=== PATIENT | female | born 1945 | race Caucasian/White ===

== ENCOUNTER 2018-12-10 08:14 | Outpatient (CLI) | payer MEDICARE, OTHER ==
[2018-12-10 08:50] LABS: BASOPHILS % (AUTO) 0.5 %; EOSINOPHILS # (AUTO) 0.2 10^3/uL (0.0-0.7); EOSINOPHILS % (AUTO) 3.8 %; HGB - HEMOGLOBIN 12.4 g/dL (12.0-16.0); LYMPHOCYTES # (AUTO) 1.3 10^3/uL (1.5-3.5); LYMPHOCYTES % (AUTO) 33.1 %; MEAN CORPUSCULAR HEMOGLOBIN 29.2 pg (27.0-31.0); MEAN CORPUSCULAR HGB CONC 32.5 g/dL (32.0-36.0); MEAN CORPUSCULAR VOLUME 90.1 fL (81.0-99.0); MONOCYTES # (AUTO) 0.4 10^3/uL (0.0-1.0); MONOCYTES % (AUTO) 9.5 %; NEUTROPHILS # (AUTO) 2.1 10^3/uL (1.5-6.6); NEUTROPHILS % (AUTO) 52.8 %; PLT - PLATELET COUNT 143 10^3/uL (130-450); RED BLOOD COUNT 4.24 10^6/uL (4.20-5.40); RED CELL DISTRIBUTION WIDTH 13.9 % (12.0-15.0)
[2018-12-10 09:04] LABS: ALBUMIN 4.2 g/dL (3.2-5.5); ALBUMIN/GLOBULIN RATIO 1.5 (1.0-2.2); ALKALINE PHOSPHATASE 52 IU/L (42-121); ALT ALANINE AMINOTRANSFERASE 25 IU/L (10-60); AST ASPARTATE AMINOTRANSFERASE 32 IU/L (10-42); BILIRUBIN,TOTAL 0.7 mg/dL (0.2-1.0); BUN - BLOOD UREA NITROGEN 16 mg/dL (6-20); CALCIUM 9.5 mg/dL (8.5-10.3); CARBON DIOXIDE - CO2 26 mmol/L (21-32); CHLORIDE 106 mmol/L (101-111); CHOL/HDL RATIO 3.3 (<4.4); CHOLESTEROL 196 mg/dL; CREATININE 0.8 mg/dL (0.4-1.0); GFR - MDRD 71 (>89); GLUCOSE 92 mg/dL (70-100); HDL CHOLESTEROL 60 mg/dL; LDL CHOLESTEROL,CALCULATED 121 mg/dL; SODIUM 142 mmol/L (135-145); VLDL CHOLESTEROL 15 mg/dL
== END 2018-12-10 08:15 | disposition home or self-care (01) ==
LOC: LAB 08:14
PROVIDERS: ATTEND Internal Medicine
DX: E55.9 Vitamin D deficiency, unspecified (principal); E78.00 Pure hypercholesterolemia, unspecified
CPT/HCPCS: 36415; 80053; 80061; 82306; 83721; 84443; 85025

== ENCOUNTER 2020-03-11 09:33 | Outpatient (CLI) | payer MEDICARE, OTHER ==
[2020-03-11 09:53] LABS: BASOPHILS % (AUTO) 0.7 %; EOSINOPHILS # (AUTO) 0.2 10^3/uL (0.0-0.7); LYMPHOCYTES # (AUTO) 1.1 10^3/uL (1.5-3.5); LYMPHOCYTES % (AUTO) 26.3 %; MEAN CORPUSCULAR HEMOGLOBIN 29.5 pg (27.0-31.0); MEAN CORPUSCULAR HGB CONC 33.2 g/dL (32.0-36.0); MEAN CORPUSCULAR VOLUME 88.9 fL (81.0-99.0); MEAN PLATELET VOLUME 10.1 fL (7.9-10.8); MONOCYTES # (AUTO) 0.3 10^3/uL (0.0-1.0); MONOCYTES % (AUTO) 7.4 %; NEUTROPHILS # (AUTO) 2.6 10^3/uL (1.5-6.6); NEUTROPHILS % (AUTO) 61.4 %; PLT - PLATELET COUNT 149 10^3/uL (130-450); RED BLOOD COUNT 4.41 10^6/uL (4.20-5.40); RED CELL DISTRIBUTION WIDTH 13.8 % (12.0-15.0); WHITE BLOOD COUNT 4.3 x10^3/uL (4.8-10.8)
[2020-03-11 10:09] LABS: ALBUMIN 4.5 g/dL (3.2-5.5); ALBUMIN/GLOBULIN RATIO 1.6 (1.0-2.2); ALKALINE PHOSPHATASE 54 IU/L (42-121); ALT ALANINE AMINOTRANSFERASE 19 IU/L (10-60); AST ASPARTATE AMINOTRANSFERASE 27 IU/L (10-42); BILIRUBIN,TOTAL 0.6 mg/dL (0.2-1.0); BUN - BLOOD UREA NITROGEN 16 mg/dL (6-20); CALCIUM 9.6 mg/dL (8.5-10.3); CARBON DIOXIDE - CO2 24 mmol/L (21-32); CHLORIDE 105 mmol/L (101-111); CHOL/HDL RATIO 3.4 (<4.4); CHOLESTEROL 202 mg/dL; CREATININE 0.9 mg/dL (0.4-1.0); GLUCOSE 100 mg/dL (70-100); HDL CHOLESTEROL 59 mg/dL; LDL CHOLESTEROL,CALCULATED 127 mg/dL; LDL/HDL RATIO 2.2 (<4.4); SODIUM 140 mmol/L (135-145); TOTAL PROTEIN 7.4 g/dL (6.7-8.2); VLDL CHOLESTEROL 16 mg/dL
== END 2020-03-11 09:34 | disposition home or self-care (01) ==
LOC: LAB 09:33
PROVIDERS: ATTEND Registered Nurse
DX: Z00.00 Encounter for general adult medical examination without abnormal findings (principal); I10 Essential (primary) hypertension; E78.00 Pure hypercholesterolemia, unspecified; J45.909 Unspecified asthma, uncomplicated; D69.6 Thrombocytopenia, unspecified; Z12.31 Encounter for screening mammogram for malignant neoplasm of breast
CPT/HCPCS: 36415; 80053; 80061; 83721; 84443; 85025

== ENCOUNTER 2020-04-05 13:02 | Outpatient (CLI) | payer MEDICARE, OTHER ==
--- NOTE | 2020-04-06 16:31 | Mammography Report ---
BILATERAL DIGITAL SCREENING MAMMOGRAM 3D/2D: 04/05/2020 CLINICAL: Routine screening. Comparison is made to exams dated: 10/31/2017 mammogram, 09/10/2016 mammogram, and 07/27/2015 mammogram - [facility]. There are scattered fibroglandular elements in both breasts. No significant masses, calcifications, or other findings are seen in either breast. There has been no significant interval change. IMPRESSION: NEGATIVE There is no mammographic evidence of malignancy. A 1 year screening mammogram is recommended. This exam was interpreted at Station ID: [id number]. NOTE: For mammograms, a report in lay terms will be sent to the patient. Approximately 15% of breast malignancies will not be visualized mammographically. In the management of a palpable breast mass, a negative mammogram must not discourage biopsy of a clinically suspicious lesion. Electronically Signed By: Sonam hutchins/[email or web address]:04/05/2020 16:48:57 ACR BI-RADS Category 1: Negative 3341F PARENCHYMAL PATTERN: (A) - The breast(s) demonstrate(s) scattered fibroglandular densities. BI-RADS CATEGORY: (1) - 1 RECOMMENDATION: (ANNUAL) - Recommend routine annual screening mammography. [id number] 1 year screening LATERALITY: (B)
== END 2020-04-05 13:03 | disposition home or self-care (01) ==
LOC: DI 13:02
DX: Z12.31 Encounter for screening mammogram for malignant neoplasm of breast (principal)
CPT/HCPCS: 77063; 77067

== ENCOUNTER 2020-04-26 06:50 | Outpatient (CLI) | payer MEDICARE, OTHER | END 2020-04-26 06:51 | disposition critical access hospital (66) | LOC: EMS 06:50 | PROVIDERS: ATTEND Surgery | DX: R55 Syncope and collapse (principal) | CPT/HCPCS: A0425; A0427 ==

== ENCOUNTER 2020-04-26 07:11 | Observation (INO) | payer MEDICARE, OTHER ==
[2020-04-26] MEDS ORDERED: SODIUM CHLORIDE 0.9% 1,000 ML IV STA (07:36)
[2020-04-26 08:07] LABS: BASOPHILS % (AUTO) 0.3 %; EOSINOPHILS # (AUTO) 0.2 10^3/uL (0.0-0.7); EOSINOPHILS % (AUTO) 2.9 %; HGB - HEMOGLOBIN 12.4 g/dL (12.0-16.0); LYMPHOCYTES % (AUTO) 13.2 %; MEAN CORPUSCULAR HEMOGLOBIN 29.1 pg (27.0-31.0); MEAN CORPUSCULAR HGB CONC 31.8 g/dL (32.0-36.0); MEAN CORPUSCULAR VOLUME 91.5 fL (81.0-99.0); MEAN PLATELET VOLUME 10.2 fL (7.9-10.8); MONOCYTES # (AUTO) 0.5 10^3/uL (0.0-1.0); MONOCYTES % (AUTO) 6.2 %; NEUTROPHILS # (AUTO) 5.9 10^3/uL (1.5-6.6); PLT - PLATELET COUNT 143 10^3/uL (130-450); RED BLOOD COUNT 4.26 10^6/uL (4.20-5.40); RED CELL DISTRIBUTION WIDTH 13.7 % (12.0-15.0); WHITE BLOOD COUNT 7.6 x10^3/uL (4.8-10.8)
[2020-04-26] MEDS ORDERED: BUFFERED LIDOCAINE 10 ML SYRINGE SUBQ STA (08:11)
[2020-04-26 08:21] LABS: ALBUMIN 4.1 g/dL (3.2-5.5); ALBUMIN/GLOBULIN RATIO 1.4 (1.0-2.2); BILIRUBIN,TOTAL 0.4 mg/dL (0.2-1.0); CALCIUM 9.3 mg/dL (8.5-10.3); CREATININE 0.8 mg/dL (0.4-1.0)
--- NOTE | 2020-04-26 08:22 | ED Physician Documentation ---
History of Present Illness - Stated complaint Stated Complaint: SYNCOPE - Chief complaint Chief Complaint: Neuro - History obtained from History obtained from: Patient - Additonal information Additional information: 75-year-old woman with past medical history of mild intermittent asthma, non- smoker, presents with syncopal episode this morning. Patient woke up with chest congestion and nasal congestion, used her inhaler, and on the second puff became lightheaded then passed out. She woke with her face on the floor, with bilateral epistaxis, and laceration to the lower lip. She swallowed blood on route via EMS and felt nauseous spitting up blood twice.Last tetanus 4 years ago. Patient denies fever chills chest pain palpitations shortness of breath coughMyalgias. She does endorse mild bifrontal nonradiating aching headache. Review of Systems Ten Systems: 10 systems reviewed and negative Constitutional: denies: Fever, Chills Cardiac: reports: Chest pain / pressure. denies: Palpitations Respiratory: reports: Wheezing. denies: Dyspnea, Cough PD PAST MEDICAL HISTORY - Allergies Allergies/Adverse Reactions: Allergies Allergy/AdvReac Type Severity Reaction Status Date / Time No Known Drug Allergies Allergy Verified 04/26/20 07:26 PD ED PE NORMAL - Vitals Vital signs reviewed: Yes - General General: Alert and oriented X 3 - HEENT HEENT: Atraumatic, PERRL, EOMI, Dentition benign, Other (abrasions to R zygomatic arch without underlying tenderness. BL dried blood to nares with no NSH. 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, No motor deficit, No sensory deficit, Normal speech - Psych Psych: Normal mood, Normal affect Results - Vitals Vitals: Vital Signs - 24 hr 04/26/20 04/26/20 07:11 07:30 Temperature 36.2 C L Heart Rate 61 57 L Respiratory 18 12 Rate Blood Pressure 176/99 H 151/91 H O2 Saturation 98 97 Oxygen O2 Source Room air - EKG (time done) 0735 Rate: Rate (enter#) (57) Rhythm: Sinus bradycardia [place]: Normal Intervals: Normal NH QRS: Normal Ischemia: Normal ST segments - Labs Labs: Laboratory Tests 04/26/20 04/26/20 04/26/20 07:50 07:59 07:59 WBC 7.6 RBC 4.26 Hgb 12.4 Hct 39.0 MCV 91.5 MCH 29.1 MCHC 31.8 L RDW 13.7 Plt Count 143 MPV 10.2 Neut # (Auto) 5.9 Lymph # (Auto) 1.0 L [place] # (Auto) 0.5 Eos # (Auto) 0.2 Baso # (Auto) 0.0 Absolute Nucleated RBC 0.00 Nucleated RBC % 0.0 Sodium 142 Potassium 3.8 Chloride 106 Carbon Dioxide 23 Anion Gap 13.0 BUN 16 Creatinine 0.8 Estimated GFR (MDRD) 70 L Glucose 104 H Calcium 9.3 Total Bilirubin 0.4 AST 35 ALT 22 Alkaline Phosphatase 58 Troponin I High Sens Total Protein 7.0 Albumin 4.1 Globulin 2.9 Albumin/Globulin Ratio 1.4 Lipase 45 Nasal Adenovirus (PCR) NOT DETECTED Nasal B. parapertussis DNA (PCR) NOT DETECTED Nasal Coronavir 229E PCR NOT DETECTED Nasal Coronavir HKU1 PCR NOT DETECTED Nasal Coronavir NL63 PCR NOT DETECTED Nasal Coronavir OC43 PCR NOT DETECTED Nasal Enterovir/Rhinovir PCR NOT DETECTED Nasal Influenza B PCR NOT DETECTED Nasal Influenza A PCR NOT DETECTED Nasal Parainfluen 1 PCR NOT DETECTED Nasal Parainfluen 2 PCR NOT DETECTED Nasal Parainfluen 3 PCR NOT DETECTED Nasal Parainfluen 4 PCR NOT DETECTED Nasal RSV (PCR) NOT DETECTED Nasal B.pertussis DNA PCR NOT DETECTED Nasal C.pneumoniae (PCR) NOT DETECTED Bryan Human Metapneumo PCR NOT DETECTED Nasal M.pneumoniae (PCR) NOT DETECTED Nasal SARS-CoV-2 (PCR) NOT DETECTED 04/26/20 07:59 WBC RBC Hgb Hct MCV MCH MCHC RDW Plt Count MPV Neut # (Auto) Lymph # (Auto) [place] # (Auto) Eos # (Auto) Baso # (Auto) Absolute Nucleated RBC Nucleated RBC % Sodium Potassium Chloride Carbon Dioxide Anion Gap BUN Creatinine Estimated GFR (MDRD) Glucose Calcium Total Bilirubin AST ALT Alkaline Phosphatase Troponin I High Sens 3.1 Total Protein Albumin Globulin Albumin/Globulin Ratio Lipase Nasal Adenovirus (PCR) Nasal B. parapertussis DNA (PCR) Nasal Coronavir 229E PCR Nasal Coronavir HKU1 PCR Nasal Coronavir NL63 PCR Nasal Coronavir OC43 PCR Nasal Enterovir/Rhinovir PCR Nasal Influenza B PCR Nasal Influenza A PCR Nasal Parainfluen 1 PCR Nasal Parainfluen 2 PCR Nasal Parainfluen 3 PCR Nasal Parainfluen 4 PCR Nasal RSV (PCR) Nasal B.pertussis DNA PCR Nasal C.pneumoniae (PCR) Bryan Human Metapneumo PCR Nasal M.pneumoniae (PCR) Nasal SARS-CoV-2 (PCR) PD MEDICAL DECISION MAKING - ED course Complexity details: d/w patient ED course: 75-year-old woman presents status post syncopal episode with preceding symptoms of lightheadedness. Patient will undergo work-up in the ED and then is a good candidate for observation for echocardiogram. Will discuss with hospitalist. Departure - Departure Disposition: ED Place in Observation Clinical Impression: Syncope, Dizziness, Laceration of lip, Abrasions of multiple sites, Epistaxis Condition: Good
--- NOTE | 2020-04-26 08:27 | XRAY Report ---
PROCEDURE: Chest 1 View X-Ray INDICATIONS: Chest Pain TECHNIQUE: One view of the chest was acquired. COMPARISON: None. FINDINGS: Surgical changes and devices: None. Lungs and pleura: No pleural effusions or pneumothorax. Lungs are clear. Mediastinum: Mediastinal contours appear normal. Heart size is normal. Bones and chest wall: No suspicious bony lesions. Overlying soft tissues appear unremarkable. IMPRESSION: No acute cardiopulmonary abnormality. Reviewed by: Chad Qureshi MD on 04/26/2020 8:25 AM [facility] Approved by: Chad Qureshi MD on 04/26/2020 8:25 AM [facility] Station ID: [id number]
[2020-04-26 08:54] LABS: C. PNEUMONIAE- RESP PCR PANEL NOT DETECTED
[2020-04-26] MEDS ORDERED: SODIUM CHLORIDE FLUSH 0.9% 10 ML SYRINGE IVP PRN (09:32)
[2020-04-26] MEDS ORDERED: ACETAMINOPHEN 325 MG TABLET PO PRN (09:32)
[2020-04-26] MEDS ORDERED: ONDANSETRON ODT 4 MG TABLET TL PRN (09:32)
--- NOTE | 2020-04-26 09:34 | HISTORY & PHYSICAL EXAMINATION ---
Chief Complaint - Chief Complaint Chief Complaint: Passed out History of Present Illness - Admitted From Admitted From:: Home - History Obtained From Records Reviewed: Yes History obtained from: Patient, ER Physician, EMR - History of Present Illness HPI Comment/Other: This is a pleasant 75-year-old female with a past medical history significant for exercise-induced asthma who presents today after having a syncopal episode at home this morning. She states she woke up this morning and felt a little bit of nasal congestion. She made some tea and took her albuterol this morning. She notes that with her second inhale, she began to feel dizzy and lightheaded. She tended to sit down when all of a sudden she passed out and hit her head on the ground as well as the right side of her chest. She states her significant other heard her fall and came down to see her and by then, she was awake. She recalls the events leading up to the fall. Denies any chest pain, palpitations prior to the event. She does complain of some right-sided chest pain after the fall. She also had some bleeding from the lower lip as well as nose pain. She had some nausea due to the blood she was swallowing. She reports no prior episodes of syncope. She is to hold her breath for a few seconds while she was using the albuterol. Currently denies any dizziness, lightheadedness. In the emergency room, she was found to be afebrile with a heart rate in the 50s to 60s. Blood pressure in the 140 systolic. She is nontachypneic and saturating well on room air. Her labs are unremarkable including troponin. Chest x-ray is also unremarkable. EKG showed a sinus rhythm. Given the above findings, medicine was consulted for admission. I did discuss goals of care and she would like to be a full code. History - Past Medical History Cardiovascular: reports: None Respiratory: reports: Asthma - Family & Social History Family History Comment/Other: She reports no family history of cardiac disease or cancer. Living arrangement: At home Living Situation: With spouse/s.o. 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 She is a non-smoker. She will have 1 alcoholic beverage a week. Meds/Allgy - Home Medications Home Medications: Ambulatory Orders Medication Instructions Recorded Confirmed Albuterol Sulfate [Proair 2 puffs INH Q6H PRN 04/26/20 04/26/20 Respiclick] Calcium Carbonate/Vitamin D3 1 each PO DAILY 04/26/20 04/26/20 [Calcium 600 mg-Vit D3 10Mcg Tb] Cholecalciferol (Vitamin D3) 2,000 unit PO DAILY 04/26/20 04/26/20 [Vitamin D3] - Allergies Allergies/Adverse Reactions: Allergies Allergy/AdvReac Type Severity Reaction Status Date / Time No Known Drug Allergies Allergy Verified 04/26/20 07:26 Review of Systems - Constitutional Constitutional: denies: Fatigue, Fever, Chills - Ears, Nose & Throat Ears, Nose & Throat: reports: Nosebleeds, Nasal congestion, Bleeding gums - Cardiovascular Cariovascular: reports: Syncope. denies: Palpitations, Chest pain, Lightheadedness, Exertional dyspnea, Decr. exercise tolerance - Respiratory Respiratory: denies: Cough, SOB at rest, SOB with exertion - Gastrointestinal Gastrointestinal: reports: Nausea. denies: Abdominal pain, Vomiting - Genitourinary Genitourinary: denies: Urgency - Neurological Neurological: denies: General weakness, Focal weakness, Dizziness, Numbness - All Other Systems All Other Systems: reports: Reviewed and negative Prior Level of Functionality: She is independent with her ADLs. Exam - Vital Signs Reviewed Vital Signs: Yes Vital Signs: Vital Signs x48h Temp Pulse Resp BP Pulse Ox 04/26/20 07:30 57 L 12 151/91 H 97 04/26/20 07:11 36.2 C L 61 18 176/99 H 98 - Physical Exam General Appearance: positive: No acute distress, Alert Eyes Bilateral: positive: Normal inspection, Conjunctivae nml ENT: positive: ENT inspection nml, Other (Her nose is edematous and tender to palpation. Dry blood noted. There is a bandage in place over the lower lip.) Neck: positive: Nml inspection Respiratory: positive: No respiratory distress. negative: Wheezes, Rales Cardiovascular: positive: Regular rate & rhythm, No murmur. negative: Tachycardia, Bradycardia, Systolic murmur Abdomen: positive: Non-tender, No distention. negative: Tenderness Skin: positive: Warm, Dry Extremities: positive: Full ROM, No pedal edema Neurologic/Psychiatric: positive: Oriented x3, Motor nml. negative: Disoriented to person, Disoriented to place, Disoriented to time Conclusion/Plan - Problem List (1) Syncope Conclusion/Plan: Suspect this may have been related to the use of her inhaler and possibly a vagal episode as she held her breath. Her EKG is unremarkable initial troponin is negative. Chest x-ray is also unremarkable. We will place her in observat ion. Check orthostatics. Monitor on telemetry. Obtain echocardiogram. Trend troponins. (2) Laceration of lip Conclusion/Plan: Secondary to the fall. She is on antianticoagulation or antiplatelets. This has been sutured in the emergency department. - Lab Results Lab results reviewed: Yes Fish Bones: 04/26/20 07:59 04/26/20 07:59 - Diagnostic Imaging Results Diagnostic Imaging Results: positive: Final report reviewed - EKG Results EKG Interpreted Independently: Yes EKG Findings: EKG shows normal sinus rhythm without any ischemic changes. Core Measures - Anticipated LOS I expect patient to be DC'd or transferred within 96 hours.: Yes - Issues Hospital Issues and Management Plan: 75-year-old female presents with syncope. We will place in observation for echocardiogram, telemetry, orthostatics. - DVT/VTE - Prophylaxis VTE/DVT Device ordered at admit?: Yes VTE/DVT Prophylaxis med ordered at admit?: No Not Ordered - Medical Reason: Not indicated
--- NOTE | 2020-04-26 15:11 | PHARMACY PROGRESS NOTE ---
- Best Possible Medication History Admit Date and Time: 04/26/20 0932 Medication History completed: Yes Patient Interview: Completed Secondary Source(s): Insurance records As the person ultimately responsible for medication therapy, providers are able to order a medication from an existing home medication list in [facility] via the "Reconcile Routine" prior to Confirmation of that medication by retail support associate. Such practice is discouraged except when the physician, in their clinical judgment, deems that a medical need exists for a medication without regard to previous use.
[2020-04-26] MEDS ORDERED: ALBUTEROL NEB 2.5 MG/3 ML INH PRN (15:56)
[2020-04-26] MEDS ORDERED: SODIUM CHLORIDE FLUSH 0.9% 10 ML SYRINGE IVP SCH (17:00)
[2020-04-27 07:05] LABS: BASOPHILS % (AUTO) 0.3 %; EOSINOPHILS # (AUTO) 0.2 10^3/uL (0.0-0.7); EOSINOPHILS % (AUTO) 2.6 %; HGB - HEMOGLOBIN 12.2 g/dL (12.0-16.0); LYMPHOCYTES # (AUTO) 1.4 10^3/uL (1.5-3.5); LYMPHOCYTES % (AUTO) 24.8 %; MEAN CORPUSCULAR HEMOGLOBIN 29.3 pg (27.0-31.0); MEAN CORPUSCULAR HGB CONC 32.4 g/dL (32.0-36.0); MEAN CORPUSCULAR VOLUME 90.4 fL (81.0-99.0); MONOCYTES # (AUTO) 0.6 10^3/uL (0.0-1.0); MONOCYTES % (AUTO) 9.6 %; NEUTROPHILS # (AUTO) 3.6 10^3/uL (1.5-6.6); NEUTROPHILS % (AUTO) 62.4 %; PLT - PLATELET COUNT 147 10^3/uL (130-450); RED BLOOD COUNT 4.16 10^6/uL (4.20-5.40); RED CELL DISTRIBUTION WIDTH 13.7 % (12.0-15.0); WHITE BLOOD COUNT 5.8 x10^3/uL (4.8-10.8)
[2020-04-27 07:24] LABS: CALCIUM 9.2 mg/dL (8.5-10.3); CREATININE 0.8 mg/dL (0.4-1.0); PHOSPHORUS 2.9 mg/dL (2.5-4.6)
--- NOTE | 2020-04-27 07:26 | Discharge Plan ---
Discharge Plan Problem Reviewed?: Yes Disposition: Home, Self Care Condition: Good Diet: Regular Activity Restrictions: Activity as Tolerated Instruction Topics: Syncope Health Concerns: You were seen in the hospital because you passed out at home. We did an ultrasound of your heart which did not show any structural abnormalities. We monitored your heart rhythm which has been normal throughout this hospitalization. I suspect you likely passed out because you held your breath for extended period of time when using your inhaler. X-rays of your ribs did not show a fracture. The x-ray of your nose also did not show a fracture. Plan of Treatment: Please follow-up with your primary care provider in 1 week. If you pass out again, you may need monitor at home to monitor your heart rhythm. You may take Tylenol as needed for pain control. Care Goals: To prevent you from passing out. Assessment: The patient expressed understanding of the treatment plan. Additional Instructions or Follow Up instructions: Please follow-up with your primary care provider in 1 week. No Smoking: If you smoke, Please STOP! Call for help.
--- NOTE | 2020-04-27 07:27 | DISCHARGE SUMMARY ---
"Discharge Summary Admit Date: 04/26/20 Discharge Date: 04/27/20 Discharging Provider: Baudilio Magdaleno Primary Care Provider: Carlos Moser Code Status: Attempt Resuscitation Condition at Discharge: Good Discharge Disposition: 01 Home, Self Care - DIAGNOSES Admission Diagnoses: Syncope Laceration of lip Discharge Diagnoses with Status of Each Condition: Syncope - stable. Laceration of lip - stable. - HPI History of Present Illness: This is a pleasant 75-year-old female with a past medical history significant for exercise-induced asthma who presents today after having a syncopal episode at home this morning. She states she woke up this morning and felt a little bit of nasal congestion. She made some tea and took her albuterol this morning. She notes that with her second inhale, she began to feel dizzy and lightheaded. She tended to sit down when all of a sudden she passed out and hit her head on the ground as well as the right side of her chest. She states her significant other heard her fall and came down to see her and by then, she was awake. She recalls the events leading up to the fall. Denies any chest pain, palpitations prior to the event. She does complain of some right-sided chest pain after the fall. She also had some bleeding from the lower lip as well as nose pain. She had some nausea due to the blood she was swallowing. She reports no prior episodes of syncope. She is to hold her breath for a few seconds while she was using the albuterol. Currently denies any dizziness, lightheadedness. In the emergency room, she was found to be afebrile with a heart rate in the 50s to 60s. Blood pressure in the 140 systolic. She is nontachypneic and saturati ng well on room air. Her labs are unremarkable including troponin. Chest x-ray is also unremarkable. EKG showed a sinus rhythm. Given the above findings, medicine was consulted for admission. I did discuss goals of care and she would like to be a full code. - CONSULTS | PROCEDURES Procedures: Echocardiogram revealed a preserved ejection fraction without any significant valvular disease or structural abnormalities. - HOSPITAL COURSE Hospital Course: She was admitted to the floor after a single episode at home. She had no evidence of arrhythmia while on telemetry. Her echocardiogram was unremarkable. Troponins were trended and these were unremarkable. The patient had no further evidence of syncope during his hospitalization. It was felt this may have been related to the use of her inhaler and possibly holding her breath for extended period of time versus a vagal episode. She did complain of some right-sided chest pain after the fall and a rib x-ray was obtained which was unremarkable. Nasal x-rays also obtained did not reveal a fracture. Was discharged home in a stable condition. She is asked to follow-up with her primary care provider in 1 week. It was recommended if she has a further episode of syncope, she will need an outpatient Holter monitor. - ALLERGIES Allergies/Adverse Reactions: Allergies Allergy/AdvReac Type Severity Reaction Status Date / Time No Known Drug Allergies Allergy Verified 04/26/20 07:26 - MEDICATIONS Home Medications: Ambulatory Orders Medication Instructions Recorded Confirmed Albuterol Sulfate [Proair 2 puffs INH Q6H PRN 04/26/20 04/26/20 Respiclick] Calcium Carbonate/Vitamin D3 1 each PO DAILY 04/26/20 04/26/20 [Calcium 600 mg-Vit D3 10Mcg Tb] Cholecalciferol (Vitamin D3) 2,000 unit PO DAILY 04/26/20 04/26/20 [Vitamin D3] - PHYSICAL EXAM AT DISCHARGE General Appearance: positive: No acute distress, Alert Eyes Bilateral: positive: Normal inspection, Conjunctivae nml ENT: positive: ENT inspection nml Neck: positive: Nml inspection Respiratory: positive: No respiratory distress. negative: Wheezes, Rales Cardiovascular: positive: Regular rate & rhythm, No murmur. negative: Tachycardia, Bradycardia, Systolic murmur Abdomen: positive: Non-tender, No distention. negative: Tenderness, Guarding, Rebound Skin: positive: Warm, Dry Extremities: positive: Full ROM, No pedal edema Neurologic/Psychiatric: positive: Oriented x3, Motor nml. negative: Disoriented to person, Disoriented to place, Disoriented to time Physical Exam Other/Comments: Vital Signs - 24 hr 04/26/20 04/26/20 04/26/20 13:17 14:20 14:22 Temperature Heart Rate 61 Heart Rate [ 57 L 55 L Brachial] Respiratory 18 18 20 Rate Blood Pressure 134/90 H Blood Pressure 145/76 H 154/76 H [Right Brachial artery] O2 Saturation 97 97 99 04/26/20 04/26/20 04/26/20 14:51 15:55 20:08 Temperature 37.1 C 37.0 C Heart Rate Heart Rate [ 63 59 L 64 Brachial] Respiratory 20 16 16 Rate Blood Pressure Blood Pressure 140/78 H 139/77 H 130/76 [Right Brachial artery] O2 Saturation 98 100 98 04/27/20 04/27/20 04/27/20 00:56 05:00 08:43 Temperature 37.0 C 36.9 C 36.8 C Heart Rate Heart Rate [ 60 58 L 66 Brachial] Respiratory 16 18 16 Rate Blood Pressure Blood Pressure 108/61 117/67 116/62 [Right Brachial artery] O2 Saturation 96 99 96 Oxygen O2 Source Room air - LABS Result Diagrams: 04/27/20 06:37 04/27/20 06:37 Other Lab Results: Laboratory Results - last 24 hr 04/26/20 04/26/20 04/26/20 13:41 16:49 21:01 WBC RBC Hgb Hct MCV MCH MCHC RDW Plt Count MPV Neut # (Auto) Lymph # (Auto) [place] # (Auto) Eos # (Auto) Baso # (Auto) Absolute Nucleated RBC Nucleated RBC % Sodium Potassium Chloride Carbon Dioxide Anion Gap BUN Creatinine Estimated GFR (MDRD) Glucose Calcium Phosphorus Magnesium Troponin I High Sens 5.0 4.7 4.2 04/27/20 04/27/20 06:37 06:37 WBC 5.8 RBC 4.16 L Hgb 12.2 Hct 37.6 MCV 90.4 MCH 29.3 MCHC 32.4 RDW 13.7 Plt Count 147 MPV 10.0 Neut # (Auto) 3.6 Lymph # (Auto) 1.4 L [place] # (Auto) 0.6 Eos # (Auto) 0.2 Baso # (Auto) 0.0 Absolute Nucleated RBC 0.00 Nucleated RBC % 0.0 Sodium 135 Potassium 4.0 Chloride 104 Carbon Dioxide 23 Anion Gap 8.0 BUN 15 Creatinine 0.8 Estimated GFR (MDRD) 70 L Glucose 98 Calcium 9.2 Phosphorus 2.9 Magnesium 2.0 Troponin I High Sens - DIAGNOSTIC IMAGING Diagnostic Imaging Results: Final report reviewed - FOLLOW UP Follow Up: She was asked to follow-up with her primary care provider in 1 week. - TIME SPENT Time Spent in Discharge (Minutes): 31"
[2020-04-27 08:45] VITALS: BP 116/62
--- NOTE | 2020-04-27 08:52 | XRAY Report ---
PROCEDURE: Ribs 2 View RT INDICATIONS: Right chest pain. Fall. TECHNIQUE: 2 views of the right ribs were acquired. COMPARISON: Chest x-ray 04/26/2020 FINDINGS: Surgical changes and devices: None. Bones and chest wall: No fractures or dislocations. No suspicious bony lesions. Overlying soft tis sues appear unremarkable. Lungs and pleura: The visualized lung appears clear. No pleural effusions or pneumothorax are visib le. IMPRESSION: No acute pulmonary process. No visualized acute fracture or dislocation. However, occult injury canno t be excluded. Recommend short interval imaging follow-up in 7-10 days as clinically indicated for ad ditional evaluation. Reviewed by: Edna Bobby MD on 04/27/2020 7:51 AM [facility] Approved by: Edna Bobby MD on 04/27/2020 7:51 AM [facility] Station ID: [id number]
--- NOTE | 2020-04-27 08:57 | XRAY Report ---
PROCEDURE: Nasal Bones INDICATIONS: Fall. Trauma. Edema. TECHNIQUE: 3 views of the nasal bones acquired. COMPARISON: None FINDINGS: Bones: No displaced nasal bone fracture. Nasal septum is midline. Normal nasociliary nerve grooves a re noted. Soft tissues: No suspicious soft tissue calcifications. IMPRESSION: No displaced nasal bone fracture. Reviewed by: Lore Ernandez MD, PhD on 04/27/2020 8:55 AM [facility] Approved by: Lore Ernandez MD, PhD on 04/27/2020 8:55 AM [facility] Station ID: [id number]
[2020-04-27] MEDS ORDERED: CALCIUM CARB (OYSTER SHELL) 500 MG TABLET PO SCH (09:00)
[2020-04-27] MEDS ORDERED: CHOLECALCIFEROL 25 MCG TABLET PO SCH (09:00)
== END 2020-04-27 12:11 | disposition home or self-care (01) ==
LOC: EDUNIT# → ED 07:11 → OBS 09:32
PROVIDERS: ADMIT Internal Medicine; ATTEND Internal Medicine
DX: R55 Syncope and collapse (principal); S01.511A Laceration without foreign body of lip, initial encounter; W18.30XA Fall on same level, unspecified, initial encounter; Y92.009 Unspecified place in unspecified non-institutional (private) residence as the place of occurrence of the external cause; R04.0 Epistaxis; R00.1 Bradycardia, unspecified; J45.990 Exercise induced bronchospasm; R07.89 Other chest pain; Z20.828 Contact with and (suspected) exposure to other viral communicable diseases
CPT/HCPCS: 36415; 70160; 71045; 71100; 80048; 80053; 83690; 83735; 84100; 84484; 85025; 87631; 93005; 93306; 99284; 99285; G0378; 0202U

== ENCOUNTER 2022-03-21 11:50 | Outpatient (CLI) | payer MEDICARE, OTHER ==
[2022-03-21 12:08] LABS: HCT - HEMATOCRIT 36.2 % (37.0-47.0); HGB - HEMOGLOBIN 11.7 g/dL (12.0-16.0); MEAN CORPUSCULAR HEMOGLOBIN 28.4 pg (27.0-31.0); MEAN CORPUSCULAR HGB CONC 32.3 g/dL (32.0-36.0); MEAN CORPUSCULAR VOLUME 87.9 fL (81.0-99.0); MEAN PLATELET VOLUME 9.6 fL (7.9-10.8); RED BLOOD COUNT 4.12 10^6/uL (4.20-5.40); RED CELL DISTRIBUTION WIDTH 13.4 % (12.0-15.0); WHITE BLOOD COUNT 6.3 x10^3/uL (4.8-10.8)
[2022-03-21 12:48] LABS: ALBUMIN 4.3 g/dL (3.2-5.5); ALBUMIN/GLOBULIN RATIO 1.2 (1.0-2.2); ALKALINE PHOSPHATASE 67 IU/L (42-121); ALT ALANINE AMINOTRANSFERASE 13 IU/L (10-60); AST ASPARTATE AMINOTRANSFERASE 23 IU/L (10-42); BILIRUBIN,TOTAL 0.5 mg/dL (0.2-1.0); BUN - BLOOD UREA NITROGEN 17 mg/dL (6-20); CARBON DIOXIDE - CO2 28 mmol/L (21-32); CHLORIDE 104 mmol/L (101-111); CHOL/HDL RATIO 3.1 (<4.4); CHOLESTEROL 171 mg/dL; CREATININE 0.9 mg/dL (0.4-1.0); GFR - MDRD 61 (>89); GLUCOSE 94 mg/dL (70-100); HDL CHOLESTEROL 56 mg/dL; LDL CHOLESTEROL,CALCULATED 103 mg/dL; LDL/HDL RATIO 1.8 (<4.4); POTASSIUM 4.2 mmol/L (3.5-5.0); SODIUM 139 mmol/L (135-145); TRIGLYCERIDES 60 mg/dL; VLDL CHOLESTEROL 12 mg/dL
== END 2022-03-21 11:51 | disposition home or self-care (01) ==
LOC: LAB 11:50
DX: I10 Essential (primary) hypertension (principal)
CPT/HCPCS: 36415; 80053; 80061; 83721; 85027

== ENCOUNTER 2022-04-06 13:26 | Outpatient (CLI) | payer MEDICARE, OTHER ==
--- NOTE | 2022-04-09 09:44 | Mammography Report ---
BILATERAL DIGITAL SCREENING MAMMOGRAM 3D/2D: 04/06/2022 CLINICAL: Routine screening. Comparison is made to exams dated: 04/05/2020 mammogram, 10/31/2017 mammogram, 09/10/2016 mammogram, mammogram, 09/16/2012 mammogram, and 08/23/2009 mammogram - [facility]. There are scattered areas of fibroglandular density in both breasts (category b / 25%-50% glandular t issue). There is a cluster of asymmetries in the left breast at 10 o'clock anterior depth. No other significant masses, calcifications, or other findings are seen in either breast. IMPRESSION: INCOMPLETE: NEEDS ADDITIONAL IMAGING EVALUATION The cluster of asymmetries in the left breast is indeterminate. Additional views with possible ultra sound or ultrasound with possible additional views are recommended. Based on the Tyrer Cuzick model (a risk assessment model) the patients lifetime risk is 4.4% and her 10 year risk is 4.4%. According to the ACR, ACS, and NCCN guidelines, an annual breast MRI exam aurelio g with mammogram is recommended if the patients lifetime risk is 20% or greater. This exam was interpreted at Station ID: [id number]. NOTE: For mammograms, a report in lay terms will be sent to the patient. Approximately 15% of breast malignancies will not be visualized mammographically. In the management of a palpable breast mass, a negative mammogram must not discourage biopsy of a clinically suspicious lesion. Electronically Signed By: Tha Menjivar M.D., jr/marquisrad:04/06/2022 16:50:47 ACR BI-RADS Category 0: Incomplete 3340F PARENCHYMAL PATTERN: (A) - The breast(s) demonstrate(s) scattered fibroglandular densities. BI-RADS CATEGORY: (0) - 0 Mammo and [place] [id number] Immediate follow-up LATERALITY: (B)
== END 2022-04-06 13:27 | disposition home or self-care (01) ==
LOC: DI 13:26
PROVIDERS: ATTEND Internal Medicine
DX: Z12.31 Encounter for screening mammogram for malignant neoplasm of breast (principal); R92.8 Other abnormal and inconclusive findings on diagnostic imaging of breast

== ENCOUNTER 2022-05-02 08:50 | Outpatient (CLI) | payer MEDICARE, OTHER ==
--- NOTE | 2022-05-03 10:58 | Mammography Report ---
UNILATERAL LEFT DIGITAL DIAGNOSTIC MAMMOGRAM 3D/2D WITH MEDIOLATERAL ADDITIONAL VIEWS: 05/02/2022 CLINICAL: Patient returns today to evaluate an asymmetry in the left breast. Comparison is made to exams dated: 04/06/2022 mammogram, 04/05/2020 mammogram, 10/31/2017 mammogram, an d 09/10/2016 mammogram - [facility]. There are scattered areas of fibroglandular density in the left breast (category b / 25%-50% glandula r tissue). There is an oval focal asymmetry with a circumscribed margin in the left breast central to the nipple anterior depth. This is seen in additional views. Additional focal asymmetries seen on screening mammogram do not persist on spot compression images. No other significant masses or calcifications are seen in the breast. IMPRESSION: INCOMPLETE: NEEDS ADDITIONAL IMAGING EVALUATION The oval focal asymmetry in the left breast is indeterminate. An ultrasound is recommended. Based on the Tyrer Cuzick model (a risk assessment model) the patients lifetime risk is 4.0% and her 10 year risk is 0.0%. According to the ACR, ACS, and NCCN guidelines, an annual breast MRI exam aurelio g with mammogram is recommended if the patients lifetime risk is 20% or greater. This exam was interpreted at Station ID: [id number]. NOTE: For mammograms, a report in lay terms will be sent to the patient. Approximately 15% of breast malignancies will not be visualized mammographically. In the management of a palpable breast mass, a negative mammogram must not discourage biopsy of a clinically suspicious lesion. Electronically Signed By: Chad durbin/farida:05/02/2022 12:58:48 ACR BI-RADS Category 0: Incomplete 3340F PARENCHYMAL PATTERN: (A) - The breast(s) demonstrate(s) scattered fibroglandular densities. BI-RADS CATEGORY: (0) - 0 Ultrasound [id number] Immediate follow-up LATERALITY: (L)
--- NOTE | 2022-05-03 10:58 | Ultrasound Report ---
LIMITED ULTRASOUND OF LEFT BREAST: 05/02/2022 CLINICAL: Patient returns today to evaluate a focal asymmetry in the left breast. Comparison is made to exams dated: 05/02/2022 mammogram, 04/06/2022 mammogram, 04/05/2020 mammogram, mammogram, and 09/10/2016 mammogram - [facility]. Color flow and real-time ultrasound of the left breast 6 o'clock, 12 o'clock, and retroareolar regio ns were performed. Huber scale images of the real-time examination were reviewed. There are benign dilated ducts in the left breast in the sub-areolar depth. There is a benign 0.5 cm x 0.4 cm x 0.2 cm oval lymph node with a circumscribed margin in the left br east at 12 o'clock middle depth 1 cm from the nipple. This oval lymph node is hypoechoic with fatty hilum. This correlates with mammography findings. IMPRESSION: BENIGN There is no sonographic evidence of malignancy. The 0.5 cm x 0.4 cm x 0.2 cm oval lymph node in the left breast is benign. Return to annual mammogram screening schedule is recommended. This exam was interpreted at Station ID: [id number]. Electronically Signed By: Chad durbin/farida:05/02/2022 13:09:52 Ultrasound BI-RADS: 2 Benign BI-RADS CATEGORY: (2) - 2 Mammogram [id number] return to screening LATERALITY: (B)
== END 2022-05-02 08:51 | disposition home or self-care (01) ==
LOC: DI 08:50
PROVIDERS: ATTEND Internal Medicine
DX: R92.8 Other abnormal and inconclusive findings on diagnostic imaging of breast (principal)

== ENCOUNTER 2022-08-22 10:37 | Outpatient (CLI) | payer MEDICARE, OTHER ==
[2022-08-22 10:51] LABS: HCT - HEMATOCRIT 34.5 % (37.0-47.0); HGB - HEMOGLOBIN 10.5 g/dL (12.0-16.0); MEAN CORPUSCULAR HEMOGLOBIN 25.5 pg (27.0-31.0); MEAN CORPUSCULAR HGB CONC 30.4 g/dL (32.0-36.0); MEAN CORPUSCULAR VOLUME 83.9 fL (81.0-99.0); MEAN PLATELET VOLUME 9.5 fL (7.9-10.8); RED BLOOD COUNT 4.11 10^6/uL (4.20-5.40); RED CELL DISTRIBUTION WIDTH 14.6 % (12.0-15.0)
[2022-08-22 11:07] LABS: ALBUMIN 3.6 g/dL (3.2-5.5); ALBUMIN/GLOBULIN RATIO 0.8 (1.0-2.2); ALKALINE PHOSPHATASE 64 IU/L (42-121); ALT ALANINE AMINOTRANSFERASE 13 IU/L (10-60); AST ASPARTATE AMINOTRANSFERASE 19 IU/L (10-42); BILIRUBIN,TOTAL 0.5 mg/dL (0.2-1.0); BUN - BLOOD UREA NITROGEN 13 mg/dL (6-20); CALCIUM 9.5 mg/dL (8.5-10.3); CARBON DIOXIDE - CO2 28 mmol/L (21-32); CHLORIDE 102 mmol/L (101-111); CHOL/HDL RATIO 2.7 (<4.4); CHOLESTEROL 142 mg/dL; CREATININE 0.7 mg/dL (0.4-1.0); GFR - MDRD 81 (>89); GLUCOSE 100 mg/dL (70-100); HDL CHOLESTEROL 53 mg/dL; LDL CHOLESTEROL,CALCULATED 76 mg/dL; LDL/HDL RATIO 1.4 (<4.4); POTASSIUM 3.7 mmol/L (3.5-5.0); SODIUM 138 mmol/L (135-145); TOTAL PROTEIN 7.9 g/dL (6.7-8.2); TRIGLYCERIDES 64 mg/dL; VLDL CHOLESTEROL 13 mg/dL
== END 2022-08-22 10:38 | disposition home or self-care (01) ==
LOC: LAB 10:37
PROVIDERS: ATTEND Internal Medicine
DX: I10 Essential (primary) hypertension (principal)
CPT/HCPCS: 36415; 80053; 80061; 83721; 85027

== ENCOUNTER 2022-10-03 13:35 | Outpatient (CLI) | payer MEDICARE, OTHER ==
[2022-10-03 13:57] LABS: HCT - HEMATOCRIT 32.6 % (37.0-47.0); HGB - HEMOGLOBIN 10.2 g/dL (12.0-16.0); MEAN CORPUSCULAR HEMOGLOBIN 25.8 pg (27.0-31.0); MEAN CORPUSCULAR HGB CONC 31.3 g/dL (32.0-36.0); MEAN CORPUSCULAR VOLUME 82.3 fL (81.0-99.0); MEAN PLATELET VOLUME 9.2 fL (7.9-10.8); RED BLOOD COUNT 3.96 10^6/uL (4.20-5.40); RED CELL DISTRIBUTION WIDTH 15.2 % (12.0-15.0); WHITE BLOOD COUNT 6.2 x10^3/uL (4.8-10.8)
[2022-10-03 14:11] LABS: CRP - C-REACTIVE PROTEIN 3.2 mg/dL (0-1.0)
== END 2022-10-03 13:36 | disposition home or self-care (01) ==
LOC: LAB 13:35
PROVIDERS: ATTEND Internal Medicine
DX: M35.3 Polymyalgia rheumatica (principal); D50.8 Other iron deficiency anemias
CPT/HCPCS: 36415; 83540; 84466; 85027; 85651; 86140

== ENCOUNTER 2022-11-05 12:20 | Outpatient (CLI) | payer MEDICARE, OTHER ==
[2022-11-05 14:33] LABS: FECAL OCCULT BLOOD (FIT) POSITIVE (NEGATIVE)
== END 2022-11-05 12:21 | disposition home or self-care (01) ==
LOC: LAB.R 12:20
PROVIDERS: ATTEND Internal Medicine
DX: D50.8 Other iron deficiency anemias (principal)
CPT/HCPCS: 82274

== ENCOUNTER 2022-12-11 15:25 | Outpatient (CLI) | payer MEDICARE, OTHER ==
--- NOTE | 2022-12-11 22:09 | DEXA Report ---
PROCEDURE: Dexa Spine and/or Hip INDICATIONS: POST MENOPAUSAL TECHNIQUE: Dual energy x-ray absorptiometry (DXA) was performed on a Curoverse System. Regions measur ed are the AP Spine, femoral neck, and if needed forearm. COMPARISON: None FINDINGS: Lumbar Spine: Bone Mineral Density 0.953 g/cm/cm,T score -1.9. Osteopenia Left Femoral Neck: Bone Mineral Density 0.683 g/cm/cm, T score -2.6. Osteoporosis Left Hip: Bone Mineral Density 0.648 g/cm/cm,T score -2.9. Osteoporosis (T score greater or equal to -1.0: NORMAL) (T score from -1.1 to -2.4: OSTEOPENIA) (T score less than or equal to -2.5 to: OSTEOPOROSIS) Impression: By WHO criteria, this patient has osteoporosis. Patients with diagnosis of osteoporosis or osteopenia should have regular bone mineral density assess ment. For those eligible for Medicare, routine testing is allowed once every 2 years. Testing frequ ency can be increased for patients who have rapidly progressing disease or for those who are receivin g medical therapy to restore bone mass. Reviewed by: Chad Ibrahim MD on 12/11/2022 10:08 PM PDT Approved by: Chad Ibrahim MD on 12/11/2022 10:08 PM PDT Station ID: [id number]
== END 2022-12-11 15:26 | disposition home or self-care (01) ==
LOC: DI 15:25
PROVIDERS: ATTEND Internal Medicine
DX: M81.0 Age-related osteoporosis without current pathological fracture (principal); Z78.0 Asymptomatic menopausal state

== ENCOUNTER 2023-01-28 16:53 | Outpatient (CLI) | payer MEDICARE, OTHER ==
--- NOTE | 2023-01-28 20:46 | Ultrasound Report ---
PROCEDURE: Duplex Ext Veins Bilateral INDICATIONS: ANIVAL RODRÍGUEZ MD TECHNIQUE: Real-time imaging, as well as color and pulse Doppler interrogation, were performed of the deep veins of both legs from the inguinal ligament to the popliteal fossa. Attempted visualization of the calf veins was performed. COMPARISON: None FINDINGS: The deep veins are normally compressible, and free of intraluminal thrombus. Color and pu lse Doppler demonstrate normal phasic intravascular flow. There is normal augmentation response to d istal compression maneuver. Left popliteal fossa cystic lesion without vascularity measuring 5.4 x 1 .2 x 4.1 cm IMPRESSION: No deep venous thrombosis of the visualized lower extremities. 5.4 cm left Barrera's cyst. Reviewed by: Wili Sam on 01/28/2023 8:45 PM PDT Approved by: Wili Sam on 01/28/2023 8:45 PM PDT Station ID: [id number]
== END 2023-01-28 16:54 | disposition home or self-care (01) ==
LOC: DI 16:53
PROVIDERS: ATTEND Internal Medicine
DX: R60.0 Localized edema (principal); M71.22 Synovial cyst of popliteal space [Baker], left knee
CPT/HCPCS: 93970

== ENCOUNTER 2023-03-11 12:51 | Emergency (ER) | payer MEDICARE, OTHER ==
[2023-03-11 15:22] VITALS: BP 150/80; O2SAT 98
--- NOTE | 2023-03-11 15:29 | CT Report ---
PROCEDURE: CT cervical spine without contrast INDICATIONS: fall, neck injury TECHNIQUE: Helical axial CT of the cervical spine was obtained without contrast and reformatted in m ultiple planes. Radiation dose reduction was achieved utilizing automated exposure control or adjus tment of mA and/or kV according to patient size. COMPARISON: None. FINDINGS: Bones: No fractures or dislocations. Visualized superior ribs are intact. Disc space narrowing and hypertrophic facet joints noted throughout the exam particularly in the mid cervical spine where the re is grade 1 retrolisthesis at C3-4 and C4-5. At C4-5, there is mild to moderate central stenosis as well as moderate bilateral foraminal stenosis Soft tissues: Prevertebral soft tissues are normal in thickness. No paravertebral hematomas. No ap ical pneumothoraces. IMPRESSION: Degenerative disc disease and arthropathy without fracture or traumatic malalignment Reviewed by: Parag Jane MD on 03/11/2023 2:27 PM AKDT Approved by: Parag Jane MD on 03/11/2023 2:27 PM AKDT Station ID: [id number]
--- NOTE | 2023-03-11 15:32 | ED Physician Documentation ---
PD HPI HEAD INJURY - Stated complaint Stated Complaint: GLF/HEAD INJ - Chief complaint Chief Complaint: Trauma Hd/Nk - History obtained from History obtained from: Patient, Family - Additional information Additional information: 77 year old woman who is not anticoagulated, and who is up-to-date on tightness, fell down a few stairs today and hit her head on concrete. This happened around 11 AM. She had 30 sec loss of consciousness with mild headache. No other injuries PD PAST MEDICAL HISTORY - Past Medical History Cardiovascular: None Respiratory: Asthma - Past Surgical History Past Surgical History: No - Present Medications Home Medications: Ambulatory Orders Medication Instructions Recorded Confirmed Albuterol Sulfate [Proair 2 puffs INH Q6H PRN 04/26/20 04/26/20 Respiclick] Calcium Carbonate/Vitamin D3 1 each PO DAILY 04/26/20 04/26/20 [Calcium 600 mg-Vit D3 10Mcg Tb] Cholecalciferol (Vitamin D3) 2,000 unit PO DAILY 04/26/20 04/26/20 [Vitamin D3] - Allergies Allergies/Adverse Reactions: Allergies Allergy/AdvReac Type Severity Reaction Status Date / Time No Known Drug Allergies Allergy Verified 04/26/20 07:26 - Social History Does the pt smoke?: No Smoking Status: Never smoker PD ED PE NORMAL - Vitals Vital signs reviewed: Yes - General General: Alert and oriented X 3, No acute distress - HEENT HEENT: PERRL, EOMI, Other (hematoma R forehead with small laceration right eyebrow.) - Neck Neck: No bony TTP - Neuro Neuro: Alert and oriented X 3 Eye Opening: Spontaneous Motor: Obeys Commands Verbal: Oriented GCS Score: 15 Results - Vitals Vitals: Vital Signs - 24 hr 03/11/23 03/11/23 03/11/23 12:56 12:59 15:21 Temperature 36 C L 36.5 C 36.5 C Heart Rate 64 64 62 Respiratory 16 16 16 Rate Blood Pressure 160/79 H 160/79 H 150/80 H O2 Saturation 99 99 98 Oxygen O2 Source Room air - Rads (name of study) CT of the head and cervical spine showing cervical spine degenerative changes without trauma. Relevant Findings:: Final report received, EMP independent interpretation of test Procedures - Laceration (location) R forehead Length in cm: 1.5 Wound type: Linear Wound preparation: Irrigated copiously NS Skin layer closure: Dermabond Departure - Departure Disposition: 01 Home, Self Care Clinical Impression: Injury of head and neck Qualifiers: Encounter type: initial encounter Qualified Code(s): S09.90XA - Unspecified injury of head, initial encounter Facial laceration Qualifiers: Encounter type: initial encounter Qualified Code(s): S01.81XA - Laceration without foreign body of other part of head, initial encounter Condition: Stable Instructions: ED Head Injury Closed, ED Laceration Facial Skin Glue Forms: PCP List Discharge Date/Time: 03/11/23 15:59
--- NOTE | 2023-03-11 15:35 | CT Report ---
PROCEDURE: CT brain without contrast INDICATIONS: fall, head injury TECHNIQUE: Helical axial CT of the brain was obtained without contrast and reformatted in multiple p lanes. Radiation dose reduction was achieved using automated exposure control or adjustment of mA and /or kV according to patient size. COMPARISON: None FINDINGS: CSF spaces: Ventricles are appropriate in size and position. No hydrocephalus. Basal cisterns unre markable. Brain: No midline shift. No intracranial masses or hemorrhage. Huber-white matter interface is norm al. Atrophy and chronic ischemic change. Skull and face: Calvarium and skull base are unremarkable without suspicious lesion. Right frontal scalp hematoma Sinuses: Right maxillary sinus air-fluid level. The sphenoid sinus and mucosal thickening. Left maxi llary and ethmoid sinuses clear. Both mastoids are clear. IMPRESSION: Right frontal scalp hematoma without underlying skull fracture or intracranial hemorrhage Reviewed by: Parag Jane MD on 03/11/2023 2:33 PM [email or web address] Approved by: Parag Jane MD on 03/11/2023 2:33 PM AKDT Station ID: [id number]
== END 2023-03-11 15:59 | disposition home or self-care (01) ==
LOC: ED 12:51
DX: S06.9X1A Unspecified intracranial injury with loss of consciousness of 30 minutes or less, initial encounter (principal); S01.111A Laceration without foreign body of right eyelid and periocular area, initial encounter; W10.9XXA Fall (on) (from) unspecified stairs and steps, initial encounter; Y93.89 Activity, other specified
CPT/HCPCS: 12011; 99284

== ENCOUNTER 2023-04-19 12:31 | Outpatient (CLI) | payer MEDICARE, OTHER ==
[2023-04-19 12:48] LABS: BASOPHILS % (AUTO) 0.5 %; EOSINOPHILS # (AUTO) 0.1 10^3/uL (0.0-0.7); EOSINOPHILS % (AUTO) 0.8 %; HCT - HEMATOCRIT 28.1 % (37.0-47.0); HGB - HEMOGLOBIN 8.6 g/dL (12.0-16.0); LYMPHOCYTES # (AUTO) 1.1 10^3/uL (1.5-3.5); LYMPHOCYTES % (AUTO) 18.7 %; MEAN CORPUSCULAR HEMOGLOBIN 24.9 pg (27.0-31.0); MEAN CORPUSCULAR HGB CONC 30.6 g/dL (32.0-36.0); MEAN CORPUSCULAR VOLUME 81.4 fL (81.0-99.0); MEAN PLATELET VOLUME 9.2 fL (7.9-10.8); MONOCYTES # (AUTO) 0.6 10^3/uL (0.0-1.0); MONOCYTES % (AUTO) 10.5 %; NEUTROPHILS # (AUTO) 4.2 10^3/uL (1.5-6.6); NEUTROPHILS % (AUTO) 69.2 %; PLT - PLATELET COUNT 210 10^3/uL (130-450); RED BLOOD COUNT 3.45 10^6/uL (4.20-5.40); RED CELL DISTRIBUTION WIDTH 19.1 % (12.0-15.0)
[2023-04-19 12:59] LABS: % IRON SATURATION 5 % (20-50); IRON 15 ug/dL (50-212); TOTAL IRON BINDING CAPACITY 288 ug/dL (250-450); TRANSFERRIN 206 mg/dL (203-362)
== END 2023-04-19 12:32 | disposition home or self-care (01) ==
LOC: LAB 12:31
PROVIDERS: ATTEND Internal Medicine
DX: D50.9 Iron deficiency anemia, unspecified (principal)
CPT/HCPCS: 36415; 83540; 84466; 85025

== ENCOUNTER 2023-08-06 10:08 | Outpatient (CLI) | payer MEDICARE, OTHER ==
[2023-08-06 10:24] LABS: BASOPHILS % (AUTO) 0.3 %; EOSINOPHILS # (AUTO) 0.1 10^3/uL (0.0-0.7); EOSINOPHILS % (AUTO) 2.3 %; HCT - HEMATOCRIT 32.4 % (37.0-47.0); HGB - HEMOGLOBIN 9.8 g/dL (12.0-16.0); LYMPHOCYTES % (AUTO) 15.8 %; MEAN CORPUSCULAR HEMOGLOBIN 27.2 pg (27.0-31.0); MEAN CORPUSCULAR HGB CONC 30.2 g/dL (32.0-36.0); MEAN PLATELET VOLUME 9.7 fL (7.9-10.8); MONOCYTES # (AUTO) 0.4 10^3/uL (0.0-1.0); MONOCYTES % (AUTO) 6.6 %; NEUTROPHILS # (AUTO) 4.5 10^3/uL (1.5-6.6); NEUTROPHILS % (AUTO) 74.8 %; PLT - PLATELET COUNT 181 10^3/uL (130-450); RED CELL DISTRIBUTION WIDTH 16.5 % (12.0-15.0); WHITE BLOOD COUNT 6.1 x10^3/uL (4.8-10.8)
[2023-08-06 10:40] LABS: % IRON SATURATION 21 % (20-50); IRON 60 ug/dL (50-212); TOTAL IRON BINDING CAPACITY 280 ug/dL (250-450); TRANSFERRIN 200 mg/dL (203-362)
== END 2023-08-06 10:09 | disposition home or self-care (01) ==
LOC: LAB 10:08
PROVIDERS: ATTEND Internal Medicine
DX: D64.9 Anemia, unspecified (principal)
CPT/HCPCS: 36415; 83540; 84466; 85025

== ENCOUNTER 2023-10-08 10:09 | Outpatient (CLI) | payer MEDICARE, OTHER ==
[2023-10-08 10:23] LABS: BASOPHILS % (AUTO) 0.5 %; EOSINOPHILS # (AUTO) 0.3 10^3/uL (0.0-0.7); EOSINOPHILS % (AUTO) 4.1 %; HCT - HEMATOCRIT 35.2 % (37.0-47.0); LYMPHOCYTES # (AUTO) 1.2 10^3/uL (1.5-3.5); LYMPHOCYTES % (AUTO) 18.2 %; MEAN CORPUSCULAR HEMOGLOBIN 28.6 pg (27.0-31.0); MEAN CORPUSCULAR HGB CONC 31.3 g/dL (32.0-36.0); MEAN CORPUSCULAR VOLUME 91.7 fL (81.0-99.0); MEAN PLATELET VOLUME 9.3 fL (7.9-10.8); MONOCYTES # (AUTO) 0.5 10^3/uL (0.0-1.0); MONOCYTES % (AUTO) 8.3 %; NEUTROPHILS # (AUTO) 4.4 10^3/uL (1.5-6.6); NEUTROPHILS % (AUTO) 68.7 %; PLT - PLATELET COUNT 182 10^3/uL (130-450); RED BLOOD COUNT 3.84 10^6/uL (4.20-5.40); RED CELL DISTRIBUTION WIDTH 14.2 % (12.0-15.0); WHITE BLOOD COUNT 6.4 x10^3/uL (4.8-10.8)
[2023-10-08 10:36] LABS: % IRON SATURATION 21 % (20-50); IRON 63 ug/dL (50-212); TOTAL IRON BINDING CAPACITY 294 ug/dL (250-450); TRANSFERRIN 210 mg/dL (203-362)
== END 2023-10-08 10:10 | disposition home or self-care (01) ==
LOC: LAB 10:09
PROVIDERS: ATTEND Internal Medicine
DX: D64.9 Anemia, unspecified (principal)
CPT/HCPCS: 36415; 83540; 84466; 85025